=== PATIENT | female | born 1970 | race Caucasian/White ===

== ENCOUNTER 2023-09-19 09:50 | Outpatient (AMB) | payer OTHER, SELFPAY ==
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
[2023-09-19 09:59] VITALS: BP 122/82; PULSE 95; O2SAT 99; BMI 41.5
== END 2023-09-19 11:17 | disposition home or self-care (01) ==
PROVIDERS: PCP Internal Medicine; Visit Provider Nurse Practitioner Family
DX: S01.412S Laceration without foreign body of left cheek and temporomandibular area, sequela (principal); Z98.890 Other specified postprocedural states; F07.81 Postconcussional syndrome; F06.70 Mild neurocognitive disorder due to known physiological condition without behavioral disturbance; G44.309 Post-traumatic headache, unspecified, not intractable; R29.810 Facial weakness; G51.8 Other disorders of facial nerve; H53.2 Diplopia
CPT/HCPCS: 99204

== ENCOUNTER → 2023-09-19 09:50 | Outpatient (BNVA) | payer OTHER, SELFPAY | PROVIDERS: PCP Internal Medicine; Visit Provider Nurse Practitioner Family ==

== ENCOUNTER 2023-12-26 08:50 | Outpatient (AMB) | payer OTHER, SELFPAY ==
--- NOTE | 2023-12-26 09:11 | A.OFFVIS_ITS ---
Intake Vital Signs 12/26/23 09:12 Height 5 ft 7 in Weight 256 lb BMI 40.1 BP 128/80 Blood Pressure Location Rt brachial Position Sitting Pulse 94 Pulse Source Pulse Oximeter Pulse Oximetry (%) 96 Oxygen Delivery Method Room Air Intake Visit Reasons: 3 mnts f/u for:LVM Intake Note: Patient presents for 3 month follow up. my migraines aren't going away Allergies Sulfa (Sulfonamide Antibiotics) Allergy (Unknown, Verified 12/26/23 09:13) Unknown Medication List - Last Reconciled 12/26/23 by MARNIE Spangler amitriptyline 10 - 20 mg (1 - 2 x 10 mg) PO BEDTIME 30 days citalopram (Celexa) 40 mg PO DAILY magnesium oxide 400 mg PO BEDTIME 30 days riboflavin (vitamin B2) 400 mg PO DAILY 30 days sumatriptan succinate 50 - 100 mg orally at onset of headache, may repeat in 2 hrs PRN; max 2 tabs per day or 4 tabs/week (may take with Ibuprofen) 30 days valsartan 160 mg PO DAILY HPI HPI Comments History of Present Illness Details 53-yr-old female presents for f/u visit. Pt denies any significant interval medical changes. She has started doing small group fitness, she has already had some weight loss and gained muscle mass- has been checking w/ a body composition scale. She can have headaches during certain exercises- tries to do modifications. She continues to have facial pain. She continues to have daily headaches, usually later in the day. Triggers still include weather changes, increased time on the computer. She did start: Riboflavin 400mg qam Magnesium 400mg qhs Amitriptyline 10mg qhs- has tolerated it well. Sumatriptan helps but makes her sleepy- so waits until after work to take it and go to sleep. Baseline migraine headache characteristics: Aura: Can see flashing of light or movement from the left eye- unsure if prior to or during the headache Severe, left frontal aching but stabbing when worse a/w Photophobia, phonophobia, nausea, ears ringing, brain fog, tiredness, activity intolerance, not right in space dizziness- with bending over, getting up to quick. Unsure if lower facial s/s worsen when frontal headache is more severe. Facial pain characteristics: Left nasal/maxillary pain. The pain is constant aching and numbness. Then out of the blue, will have a brief shocking pain stems from the left lateral nose across the cheek or up into her left eye. Triggers for the shocking pain include- rainy days, sun, going outside. Takes Ibuprofen- which does not seem to help much. FORMERLY [facility], [facility] Medical History (Updated 09/19/23 @ 13:15 by MARNIE Spangler) Anxiety and depression Retinal vascular occlusion HTN (hypertension) Postconcussive syndrome Surgical History H/O bilateral oophorectomy H/O foot surgery Hx of cholecystectomy H/O section Family History Father CHF (congestive heart failure) Maternal Grandfather Diabetes Sister Asthma Social History Alcohol intake: current Patient Tobacco Use Status: Never used Tobacco Physical Exam Vital Signs: Last Vital Signs Pulse 94 12/26/23 09:12 BP 128/80 12/26/23 09:12 Pulse Ox 96 12/26/23 09:12 Oxygen Delivery Method Room Air 12/26/23 09:12 BMI result Body Mass Index 40.1 Const General: cooperative and no acute distress Orientation/consciousness: patient oriented x3 Resp Effort & Inspection: normal respiratory effort and able to speak in complete sentences Neuro Other: Left lower facial weakness, scarring. General: patient oriented x3 Cognition (Neuro): normal cognition Psych Appearance: grossly normal Mental Status: mental status grossly normal Speech and movement: Normal speech and movement present Affect: normal affect Attitude: cooperative Assessment & Plan Assessment & Plan (1) Postconcussive syndrome: Code(s): F07.81 - Postconcussional syndrome (2) Migraine with aura: Comment: post-traumatic Code(s): G43.109 - Migraine with aura, not intractable, without status migrainosus (3) Neuralgic facial pain: Comment: Left nasal and medial cheek region s/p facial laceration (Nov 2022) Code(s): G51.8 - Other disorders of facial nerve (4) Weakness on left side of face: Code(s): R29.810 - Facial weakness (5) Acquired cognitive dysfunction: Comment: post-concussive Code(s): F09 - Unspecified mental disorder due to known physiological condition Plan For overall post-concussive management: Continue to optimize good self-care, including but not limited to maintaining a healthy diet, adequate fluid intake, adequate sleep, and engaging in regular physical activity. Concur with increasing physical activity- pt plans to start at [employer]. Continue to do facial exercises daily. Track headaches. For cognitive difficulties: Continue taking notes, pacing herself Future considerations- OT cognitive Tx, neurostimulant For acute headache treatment: Ibuprofen prn Hold Sumatriptan 100mg tab- not tolertaed. Trial Rizatripatn 10mg prn, MR x's , march adjunct w/ Ibuprofen Previous acute migraine medication trials: Sumatripatn- not tolerated. Acute migraine medication contraindications: none at this time ? For headache prevention medication: Riboflavin 400mg qam Magnesium 400mg qhs Increase Amitriptyline from 10mg to 20-30mg qhs- may help migraine and left facial pain. Monitor for drowsiness. Previous migraine prevention medication trials: None Migraine prevention medication contraindications: None at this time ? ? Pt to follow-up in 3 months or sooner prn. Medications: New rizatriptan max 2 tabs per day or 4 tabs per week 5 - 10 mg (0.5 - 1 x 10 mg) PO Q2H 21 days PRN 12 tabs 3RF migraine headache Changed From amitriptyline 10 - 20 mg (1 - 2 x 10 mg) PO BEDTIME 30 days 30 tabs 3RF To amitriptyline 20 - 30 mg (2 - 3 x 10 mg) PO BEDTIME 30 days 90 tabs 3RF Coding Level of Care Code Est Pt Level 4 (09753) Diagnoses Postconcussive syndrome F07.81 Migraine with aura G43.109 Neuralgic facial pain G51.8 Weakness on left side of face R29.810 Acquired cognitive dysfunction F09
[2023-12-26 09:12] VITALS: BP 128/80; PULSE 94; O2SAT 96; BMI 40.1
== END 2023-12-26 09:58 | disposition home or self-care (01) ==
PROVIDERS: PCP Internal Medicine; Visit Provider Nurse Practitioner Family
DX: G44.309 Post-traumatic headache, unspecified, not intractable (principal); F07.81 Postconcussional syndrome; G51.8 Other disorders of facial nerve; R29.810 Facial weakness; R41.89 Other symptoms and signs involving cognitive functions and awareness
CPT/HCPCS: 99214

== ENCOUNTER → 2023-12-26 08:50 | Outpatient (BNVA) | payer OTHER, SELFPAY | PROVIDERS: PCP Internal Medicine; Visit Provider Nurse Practitioner Family ==

== ENCOUNTER 2024-03-27 09:26 | Outpatient (AMB) | payer OTHER, SELFPAY ==
--- NOTE | 2024-03-27 09:37 | A.OFFVIS_ITS ---
Vital Signs 03/27/24 09:46 Height 5 ft 0.5 in Weight 251 lb 6 oz BMI 48.3 BP 122/80 Blood Pressure Location Lt brachial Position Sitting Pulse 87 Pulse Source Pulse Oximeter Pulse Oximetry (%) 97 Oxygen Delivery Method Room Air Intake Visit Reasons: 3m follow up-LVM Intake Note: Patient presents for 3 months f/u. Migraines are getting better and medicine is working. Allergies Sulfa (Sulfonamide Antibiotics) Allergy (Unknown, Verified 03/27/24 09:43) Unknown Medication List - Last Reconciled 03/27/24 by MARNIE Spangler amitriptyline 30 mg (3 x 10 mg) PO BEDTIME 30 days citalopram (Celexa) 40 mg PO DAILY magnesium oxide 400 mg PO BEDTIME 30 days riboflavin (vitamin B2) 400 mg PO DAILY 30 days rizatriptan 5 - 10 mg (0.5 - 1 x 10 mg) PO Q2H PRN 21 days valsartan 160 mg PO DAILY HPI Comments Details: 53-yr-old female presents for f/u visit. Pt denies any significant interval medical changes. Pt reports she is scheduled a left medial cheek fat graft in hopes this will reduce left cheek pain- on 04/26/[address] Rea, [facility]. Left lips are still numb. Still doing facial exercises. She continues to have a daily low grade headache. Last severe migraine attack was 2 weeks ago. She is using Amitriptyline 30mg qhs- does have some dry mouth. Rizatriptan has been helpful w/o side effects. She did not receive the Nerivio device. Baseline migraine headache characteristics: Aura: Can see flashing of light or movement from the left eye- unsure if prior to or during the headache Severe, left frontal aching but stabbing when worse a/w Photophobia, phonophobia, nausea, ears ringing, brain fog, tiredness, activity intolerance, not right in space dizziness- with bending over, getting up to quick. Unsure if lower facial s/s worsen when frontal headache is more severe. Facial pain characteristics: Left nasal/maxillary pain. The pain is constant aching and numbness. Then out of the blue, will have a brief shocking pain stems from the left lateral nose across the cheek or up into her left eye. Triggers for the shocking pain include- rainy days, sun, going outside. Takes Ibuprofen- which does not seem to help much. FORMERLY [facility] Medical History (Updated 09/19/23 @ 13:15 by MARNIE Spangler) Anxiety and depression Retinal vascular occlusion HTN (hypertension) Postconcussive syndrome Surgical History H/O bilateral oophorectomy H/O foot surgery Hx of cholecystectomy H/O section Family History Father CHF (congestive heart failure) Maternal Grandfather Diabetes Sister Asthma Social History Alcohol intake: current Patient Tobacco Use Status: Never used Tobacco Physical Exam Vital Signs: Last Vital Signs Pulse 87 03/27/24 09:46 BP 122/80 03/27/24 09:46 Pulse Ox 97 03/27/24 09:46 Oxygen Delivery Method Room Air 03/27/24 09:46 BMI result Body Mass Index 48.3 Const General: cooperative and no acute distress Orientation/consciousness: patient oriented x3 Resp Effort & Inspection: normal respiratory effort and able to speak in complete sentences Neuro Other: Left lower facial weakness/numbness General: patient oriented x3 Cognition (Neuro): normal cognition Psych Appearance: grossly normal Mental Status: mental status grossly normal Speech and movement: Normal speech and movement present Affect: normal affect Attitude: cooperative Assessment & Plan Assessment & Plan (1) Postconcussive syndrome: Code(s): F07.81 - Postconcussional syndrome Category: Medical (2) Migraine with aura: Comment: post-traumatic Code(s): G43.109 - Migraine with aura, not intractable, without status migrainosus Category: Medical (3) Neuralgic facial pain: Comment: Left nasal and medial cheek region s/p facial laceration (Nov 2022) Code(s): G51.8 - Other disorders of facial nerve Category: Medical (4) Acquired cognitive dysfunction: Comment: post-concussive Code(s): F09 - Unspecified mental disorder due to known physiological condition Category: Medical (5) Diplopia: Code(s): H53.2 - Diplopia Category: Medical (6) Weakness on left side of face: Code(s): R29.810 - Facial weakness Category: Medical Plan For overall post-concussive management: Continue to optimize good self-care, including but not limited to maintaining a healthy diet, adequate fluid intake, adequate sleep, and engaging in regular physical activity. Continue increased physical activity. Track headaches. For left facial pain: Amitriptyline 30mhg qhs. Continue to do facial exercises daily. Future considerations- Sphenopalatine ganglion block for left medial cheek neuralgia ? For cognitive difficulties: Continue taking notes, pacing herself Future considerations- OT cognitive Tx, neurostimulant ? For acute headache treatment: Ibuprofen prn Rizatripatn 10mg prn, MR x's 1, may adjunct w/ Ibuprofen Previous acute migraine medication trials: Sumatripatn- not tolerated. Acute migraine medication contraindications: none at this time ? For headache prevention medication: Riboflavin 400mg qam Magnesium 400mg qhs Amitriptyline 30mg qhs- may help migraine and left facial pain. Monitor dry mouth. Previous migraine prevention medication trials: None Migraine prevention medication contraindications: None at this time ? ? Pt to follow-up in 6 months or sooner prn. Medications: Changed From amitriptyline 20 - 30 mg (2 - 3 x 10 mg) PO BEDTIME 30 days 90 tabs 6RF To amitriptyline 30 mg (3 x 10 mg) PO BEDTIME 30 days 90 tabs 6RF Refilled rizatriptan max 2 tabs per day or 4 tabs per week 5 - 10 mg (0.5 - 1 x 10 mg) PO Q2H 21 days PRN 12 tabs 6RF migraine headache Coding Level of Care Code Est Pt Level 4 (47393) Diagnoses Postconcussive syndrome F07.81 Migraine with aura G43.109 Neuralgic facial pain G51.8 Acquired cognitive dysfunction F09 Diplopia H53.2 Weakness on left side of face R29.810
[2024-03-27 09:46] VITALS: BP 122/80; PULSE 87; O2SAT 97; BMI 48.3
== END 2024-03-27 10:35 | disposition home or self-care (01) ==
PROVIDERS: PCP Internal Medicine; Visit Provider Nurse Practitioner Family
DX: G44.309 Post-traumatic headache, unspecified, not intractable (principal); F07.81 Postconcussional syndrome; G51.8 Other disorders of facial nerve; H53.2 Diplopia; R29.810 Facial weakness
CPT/HCPCS: 99214

== ENCOUNTER → 2024-03-27 09:26 | Outpatient (BNVA) | payer OTHER, SELFPAY | PROVIDERS: PCP Internal Medicine; Visit Provider Nurse Practitioner Family ==

== ENCOUNTER 2024-10-15 11:26 | Outpatient (AMB) | payer OTHER, SELFPAY ==
[2024-10-15 11:57] VITALS: BP 142/82; PULSE 106; O2SAT 97; BMI 42.6
--- NOTE | 2024-10-15 11:57 | MHC.OFFVIS ---
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 Pt underwent left medial cheek fat graft on 04/26/[address] Rea, [facility]. Since, she can feel her teeth and left lip better, however the cheek is still tight and the left cheek is tsill numb. Undergoing a left z-plasty on 10/31/[address] Rea. Still doing facial exercises. She continues to have a daily low grade migraine headache. She has been having left facial discomfort- which she feels is triggered by the colder weather. Having less severe migraine attacks now once every 2-3 weeks- feels maybe she is managing/dealing with them better. She is using Amitriptyline 30mg qhs- does have some dry mouth. Rizatriptan has been helpful w/o side effects. Wearing her glasses does. Baseline migraine headache characteristics: Aura: Can see flashing of light or movement from the left eye- unsure if prior to or during the headache Severe, left frontal aching but stabbing when worse a/w Photophobia, phonophobia, nausea, ears ringing, brain fog, tiredness, activity intolerance, not right in space dizziness- with bending over, getting up to quick. Unsure if lower facial s/s worsen when frontal headache is more severe. Facial pain characteristics: Left nasal/maxillary pain. The pain is constant aching and numbness. Then out of the blue, will have a brief shocking pain stems from the left lateral nose across the cheek or up into her left eye. Triggers for the shocking pain include- rainy days, sun, going outside. Takes Ibuprofen- which does not seem to help much. [facility] Medical History Anxiety and depression Retinal vascular occlusion HTN (hypertension) Postconcussive syndrome Surgical History H/O bilateral oophorectomy H/O foot surgery Hx of cholecystectomy H/O section Family History Father CHF (congestive heart failure) Maternal Grandfather Diabetes Sister Asthma Social History Alcohol intake: current Patient Tobacco Use Status: Never used Tobacco Physical Exam Vital Signs: Last Vital Signs Pulse 106 H 10/15/24 11:57 BP 142/82 H 10/15/24 11:57 Pulse Ox 97 10/15/24 11:57 Oxygen Delivery Method Room Air 10/15/24 11:57 BMI result Body Mass Index 42.6 Const General: cooperative and no acute distress Orientation/consciousness: patient oriented x3 Resp Effort & Inspection: normal respiratory effort and able to speak in complete sentences Neuro Other: Left lower facial asymmetry, scar, numbness, w/ decreased weakness. General: patient oriented x3 Cognition (Neuro): normal cognition Psych Appearance: grossly normal Mental Status: mental status grossly normal Speech and movement: Normal speech and movement present Affect: normal affect Attitude: cooperative Assessment & Plan Assessment & Plan (1) Postconcussive syndrome: Code(s): F07.81 - Postconcussional syndrome Category: Medical (2) Migraine with aura: Comment: post-traumatic Code(s): G43.109 - Migraine with aura, not intractable, without status migrainosus Category: Medical (3) Neuralgic facial pain: Comment: Left nasal and medial cheek region s/p facial laceration (Nov 2022) Code(s): G51.8 - Other disorders of facial nerve Category: Medical (4) Acquired cognitive dysfunction: Comment: post-concussive Code(s): F09 - Unspecified mental disorder due to known physiological condition Category: Medical (5) Diplopia: Code(s): H53.2 - Diplopia Category: Medical (6) Weakness on left side of face: Code(s): R29.810 - Facial weakness Category: Medical Plan For overall post-concussive management: Continue to optimize good self-care, including but not limited to maintaining a healthy diet, adequate fluid intake, adequate sleep, and engaging in regular physical activity. Continue increased physical activity. Track headaches. For left facial pain: Amitriptyline 30mhg qhs. Continue to do facial exercises daily. Future considerations- Sphenopalatine ganglion block for left medial cheek neuralgia ? For cognitive difficulties: Continue taking notes, pacing herself Future considerations- OT cognitive Tx, neurostimulant ? For acute migraine headache treatment: Ibuprofen prn Rizatripatn 10mg prn, MR emelia's 1, march adjunct w/ Ibuprofen Previous acute migraine medication trials: Sumatripatn- not tolerated. Acute migraine medication contraindications: none at this time ? For migraine headache prevention medication: Riboflavin 400mg qam Magnesium 400mg qhs Amitriptyline 30mg qhs- may help migraine and left facial pain. Would not increase further d/t pt already has dry mouth. Start Aimovig 140mg/ml autoinjector, 1ml (140mg) subcutaneous injection once a month. Start after undergoing scheduled left facial surgery. Potential adverse effects of Aimovig include but are not limited to injection site reactions, cramps, constipation, increase in blood pressure. Previous migraine prevention medication trials: None Migraine prevention medication contraindications: None at this time ? ? Pt to follow-up in 6 months or sooner prn. Medications: New erenumab-aooe (Aimovig Autoinjector) 140 mg subcut ONCE 1 mL 6RF 30 days Refilled magnesium oxide may hold for loose stools 400 mg PO BEDTIME 30 tabs 6RF 30 days riboflavin (vitamin B2) 400 mg PO DAILY 30 tabs 6RF 30 days amitriptyline 30 mg (3 x 10 mg) PO BEDTIME 90 tabs 6RF 30 days Coding Level of Care Code Est Pt Level 4 (95346) Diagnoses Postconcussive syndrome F07.81 Migraine with aura G43.109 Neuralgic facial pain G51.8 Acquired cognitive dysfunction F09 Diplopia H53.2 Weakness on left side of face R29.810
== END 2024-10-15 12:52 | disposition home or self-care (01) ==
PROVIDERS: PCP Internal Medicine; Visit Provider Nurse Practitioner Family
DX: G44.309 Post-traumatic headache, unspecified, not intractable (principal); F07.81 Postconcussional syndrome; G51.8 Other disorders of facial nerve; F09 Unspecified mental disorder due to known physiological condition; H53.2 Diplopia; R29.810 Facial weakness
CPT/HCPCS: 99214

== ENCOUNTER → 2024-10-15 11:26 | Outpatient (BNVA) | payer OTHER, SELFPAY | PROVIDERS: PCP Internal Medicine; Visit Provider Nurse Practitioner Family ==

== ENCOUNTER 2025-04-15 07:57 | Outpatient (AMB) | payer OTHER, SELFPAY ==
[2025-04-15 08:08] VITALS: BP 144/90; PULSE 96; O2SAT 97; BMI 42.6
--- NOTE | 2025-04-15 08:08 | A.OFFVIS_ITS ---
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 Accompanied by: Self / Same As Patient Allergies Sulfa (Sulfonamide Antibiotics) Allergy (Unknown, Verified 04/15/25 08:12) Unknown Medication List - Last Reconciled 04/15/25 by MARNIE Spangler amitriptyline 30 mg (3 x 10 mg) PO BEDTIME 30 days citalopram (Celexa) 40 mg PO DAILY famotidine 20 mg PO BID fremanezumab-vfrm (Ajovy) 225 mg (1.5 mL) subcut ONCE 30 days magnesium oxide 400 mg PO BEDTIME 30 days metformin ER 500 mg PO DAILY riboflavin (vitamin B2) 400 mg PO DAILY 30 days rizatriptan 5 - 10 mg (0.5 - 1 x 10 mg) PO Q2H PRN 21 days valsartan 160 mg PO DAILY HPI Comments Details: 54-yr-old female presents for f/u visit of migraine and left facial pain. Pt underwent left medial cheek fat graft on 04/26/24 and the follow-up left z- plasty procedure on 10/31/[address] Rea at [facility]. She reports post-surgical throat irritation, which she attributes to being intubated. Since she has had voice hoarseness and feeling like something is stuck in her throat. She has since had ENT eval- nasal scope showed upper esophageal irritation and vocal cord dysfunction. She was started on prilosec and has been referred to [facility]. She notes during and for about an hour after the nasal scope- the left sided pain significantly subsided. She states the z-plasty has helped regain her left nasolabial fold, but unfortunately did not reduce her facial pain symptoms. Still doing facial exercises. She states she is getting better at differentiating between her left facial pain and migraine symptoms, migraine seems to be more right sided. Facial pain characteristics: Left nasal/maxillary pain. The pain is constant aching and numbness. Then out of the blue, will have a brief shocking pain stems from the left lateral nose across the cheek or up into her left eye. Triggers for the shocking pain inc lude- rainy days, sun, going outside. Takes Ibuprofen- which does not seem to help much. She is having about 1 migraine day per month since starting Ajovy, previously was having 2-3 attacks per week. She was able to decrease the Amitriptyline to 20mg qhs, hopes to reduce it further. Rizatriptan has been helpful w/o side effects. Baseline migraine headache characteristics: Aura: Can see flashing of light or movement from the left eye- unsure if prior to or during the headache, diplopia Severe, right or left frontal aching but stabbing when worse a/w Photophobia, phonophobia, nausea, ears ringing, brain fog, tiredness, activity intolerance, not right in space dizziness- with bending over, getting up to quick. Unsure if lower facial s/s worsen when frontal headache is more severe. [facility] Medical History Anxiety and depression Retinal vascular occlusion HTN (hypertension) Postconcussive syndrome Surgical History H/O bilateral oophorectomy H/O foot surgery Hx of cholecystectomy H/O section Family History Father CHF (congestive heart failure) Maternal Grandfather Diabetes Sister Asthma Social History Alcohol intake: current Patient Tobacco Use Status: Never used Tobacco Physical Exam Vital Signs: Last Vital Signs Pulse 96 04/15/25 08:08 BP 144/90 H 04/15/25 08:08 Pulse Ox 97 04/15/25 08:08 Oxygen Delivery Method Room Air 04/15/25 08:08 BMI result Body Mass Index 42.6 Const General: cooperative and no acute distress Orientation/consciousness: patient oriented x3 Resp Effort & Inspection: normal respiratory effort and able to speak in complete sentences Neuro Other: Left lower facial asymmetry, scar, numbness, w/ decreased weakness. General: patient oriented x3 Cognition (Neuro): normal cognition Psych Appearance: grossly normal Mental Status: mental status grossly normal Speech and movement: Normal speech and movement present Affect: normal affect Attitude: cooperative Assessment & Plan Assessment & Plan (1) Postconcussive syndrome: Code(s): F07.81 - Postconcussional syndrome Category: Medical (2) Migraine with aura: Comment: post-traumatic Code(s): G43.109 - Migraine with aura, not intractable, without status migrainosus Category: Medical Qualifiers: Status migrainosus presence: without status migrainosus Intractability: not intractable Qualified Code(s): G43.109 - Migraine with aura, not intractable, without status migrainosus (3) Neuralgic facial pain: Comment: Left nasal and medial cheek region s/p facial laceration (Nov 2022) Code(s): G51.8 - Other disorders of facial nerve Category: Medical (4) Acquired cognitive dysfunction: Comment: post-concussive Code(s): F09 - Unspecified mental disorder due to known physiological condition Category: Medical (5) Diplopia: Code(s): H53.2 - Diplopia Category: Medical (6) Weakness on left side of face: Code(s): R29.810 - Facial weakness Category: Medical Plan For overall post-concussive management: Continue to optimize good self-care, including but not limited to maintaining a healthy diet, adequate fluid intake, adequate sleep, and engaging in regular physical activity. Continue increased physical activity. Track headaches. For cognitive difficulties: Continue taking notes, pacing herself Future considerations- OT cognitive Tx, neurostimulant For acute migraine headache treatment: Ibuprofen prn Rizatripatn 10mg prn, MR x's , march adjunct w/ Ibuprofen Previous acute migraine medication trials: Sumatripatn- not tolerated. Acute migraine medication contraindications: none at this time For migraine headache prevention medication: Continue Riboflavin 400mg qam Continue Magnesium 400mg qhs May continue to try to wean off Amitriptyline- decrease from 20mg to 10mg qhs. Continue Ajovy 225mg sc monthly. Continue Valsartan for HTN. Note- Aimovig 140mg order stopped as denied by pt's insurance. Previous migraine prevention medication trials: Amitriptyline up to 30mg qhs- not fully effective. Migraine prevention medication contraindications: Topiramate- d/t risk for worsening cognitive s/s. For left facial pain: Shared info on the [employer]. May continue to try to wean off Amitriptyline- decrease from 20mg to 10mg qhs. Continue to do facial exercises daily. Start home Sphenopalatine Ganglion Block with Intranasal Lidocaine??2% viscous solution, as pt had positive effect from left nasal anesthetic during her recent nasal scope. Home Instructions for Intranasal Lidocaine/Sphenopalatine Ganglion Block * Do not take this by mouth. * This is for intranasal administration only * Draw up 1 ml of 2% viscous lidocaine into a thin 1ml dosing syringe (the syringe should be thin enough to be inserted deep into the nose).Self administer 1 mL of 2% viscous lidocaine solution into nasal passage on the same side as the head pain.?? * Lidocaine??may be administered into bilateral nasal passages if the headache/??facial pain is on both sides of the head. * Dose may be repeated x1 in 15 minutes. Max of 4 mL per nasal passage per day. Technique: * Lie down on your side curled up like a baby sleeping on its side, with your shoulder on the back of a firm pillow, and your head tilted back and rotated so you are looking up ~30 degrees. * Put the syringe into the lower nostril on the same side as your headache/facial pain, as far as it will comfortably go, with the tip pointing towards the outer (lateral) wall of the nostril. * Inject the contents of the syringe, and then sniff the medicine so that you feel it goes to the back of the nostril, but not into the throat. * If you feel burning or numbness into the eye, or if the eye tears, you know you have gotten the medicine where it needs to be. * Stay lying down with your head turned for 2 ? 3 minutes. * If your headache/facial pain is on both sides, roll over and repeat the procedure on the other side. Stay lying down for 2-3 minutes on this side. After sitting up: * When you sit up, whatever medicine has not been absorbed into your nose will roll back into your throat. * It will taste bitter and may make your throat numb. * Don?t eat or drink until the numbness has gone away ? otherwise you might swallow food or liquid into your windpipe. For further information, please review the following: Please note that some of the information below comes from [employer], which is an organization specific cluster headache. However, their explanation and video is applicable to migraine, trigeminal neuralgia and other facial pain??disorders. * cluster busters at home instruction link * https://[employer].org/resource/cfjk-kxgyltdebekr-omo-intranasal-lidoca mtv-rwgymxqqsjdiix-bjnemzmo-block/ * instructional video * https://www.youtube.com/watch?v=s3H6v0f8L3G * alternate home instruction * chrome-extension://efaidnbmnnnibpcajpcglclefindmkaj/https://www.[facility].org/assets/[facility]/headache-center/documents/nasal-lidocaine.pdf If your pharmacy can not provide you the syringe, you can buy this bdnd-xev-oyixomc at a medical supply store or online. ?Specifically, you would need a sterile, individually wrapped, 1 mL syringe without needle or luer lock. Pt to follow-up in 6 months or sooner prn. Medications: New lidocaine HCl 2% (Lidocaine Viscous) 1ml applied to left and right intranasal passage, MR x's 1 in 15 minutes. Max 4ml per nasal passage per day. 1 mL mucous membrane QID 30 days PRN 100 mL 1RF pain oral dosing syringes 1 mL syringes without needle. To be used as directed with viscous lidocaine intranasal order. 100 ea 6RF Changed From riboflavin (vitamin B2) 400 mg PO DAILY 30 days 30 tabs 6RF To riboflavin (vitamin B2) 400 mg PO DAILY 90 days 90 tabs 3RF From amitriptyline 30 mg (3 x 10 mg) PO BEDTIME 30 days 90 tabs 6RF To amitriptyline 10 mg PO BEDTIME 30 days 30 tabs 6RF From magnesium oxide may hold for loose stools 400 mg PO BEDTIME 30 days 30 tabs 6RF To magnesium oxide may hold for loose stools 400 mg PO BEDTIME 90 days 90 tabs 3RF Refilled rizatriptan max 2 tabs per day or 4 tabs per week 5 - 10 mg (0.5 - 1 x 10 mg) PO Q2H 21 days PRN 12 tabs 6RF migraine headache Coding Level of Care Code Est Pt Level 4 (52426) Diagnoses Postconcussive syndrome F07.81 Migraine with aura and without status migrainosus, not intractable G43.109 Status migrainosus presence: without status migrainosus Intractability: not intractable Neuralgic facial pain G51.8 Acquired cognitive dysfunction F09 Diplopia H53.2 Weakness on left side of face R29.810
== END 2025-04-15 08:50 | disposition home or self-care (01) ==
LOC: HO.HSMS 07:58
PROVIDERS: PCP Internal Medicine; Visit Provider Nurse Practitioner Family
DX: G51.8 Other disorders of facial nerve (principal); F07.81 Postconcussional syndrome; G44.309 Post-traumatic headache, unspecified, not intractable; F09 Unspecified mental disorder due to known physiological condition; H53.2 Diplopia; R29.810 Facial weakness
CPT/HCPCS: 99214

== ENCOUNTER 2025-10-23 10:48 | Outpatient (AMB) | payer OTHER, SELFPAY ==
--- NOTE | 2025-10-23 11:05 | A.OFFVIS_ITS ---
Vital Signs 10/23/25 11:07 Height 5 ft 7 in Weight 261 lb BMI 40.9 BP 120/78 Blood Pressure Location Rt brachial Position Sitting Pulse 99 Pulse Source Pulse Oximeter Pulse Oximetry (%) 95 Oxygen Delivery Method Room Air Intake Visit Reasons: 6 mo follow up Intake Note: Patient presents follow up for migraines/facial pain [employer] Required: No Accompanied by: Self / Same As Patient Allergies Sulfa (Sulfonamide Antibiotics) Allergy (Unknown, Verified 10/23/25 11:12) Unknown Medication List - Last Reconciled 10/23/25 by MARNIE Spangler amitriptyline 20 mg PO BEDTIME citalopram (Celexa) 40 mg PO DAILY fremanezumab-vfrm (Ajovy) 225 mg (1.5 mL) subcut ONCE 30 days lidocaine HCl 2% (Lidocaine Viscous) 1 mL mucous membrane QID PRN 30 days magnesium oxide 400 mg PO BEDTIME 90 days metformin ER 500 mg PO DAILY oral dosing syringes 1 mL syringes without needle. To be used as directed with viscous lidocaine intranasal order. riboflavin (vitamin B2) 400 mg PO DAILY 90 days rizatriptan 5 - 10 mg (0.5 - 1 x 10 mg) PO Q2H PRN 21 days semaglutide (Ozempic) 0.25 mg subcut QWEEK valsartan 160 mg PO DAILY HPI Comments Details: 54-yr-old female presents for f/u visit of migraine and left facial pain. She started on ozempic last week for diabetes control. She is scheduled for 1 more left facial surgery. She sttates that Ajovy was very effective, however her pharmacy informed her that they could not fill the order. Since not having Ajovy, she is again having a daily headache. Needing to take Rizatriptan twice a month- for the right sided headcahe that comes from the occipital region into the eye- as an ice pick sensation. Has more left facial pain on days when it is going to snow. She tried the lidocaine gel- but found it messy, and that it numbed too much of her face. 04/15/2025, HPI: Pt underwent left medial cheek fat graft on 04/26/24 and the follow-up left z- plasty procedure on 10/31/[address] Rea at [facility]. She reports post-surgical throat irritation, which she attributes to being intubated. Since she has had voice hoarseness and feeling like something is stuck in her throat. She has since had ENT eval- nasal scope showed upper esophageal irritation and vocal cord dysfunction. She was started on prilosec and has been referred to [facility]. She notes during and for about an hour after the nasal scope- the left sided pain significantly subsided. She states the z-plasty has helped regain her left nasolabial fold, but unfortunately did not reduce her facial pain symptoms. Still doing facial exercises. She states she is getting better at differentiating between her left facial pain and migraine symptoms, migraine seems to be more right sided. Facial pain characteristics: Left nasal/maxillary pain. The pain is constant aching and numbness. Then out of the blue, will have a brief shocking pain stems from the left lateral nose across the cheek or up into her left eye. Triggers for the shocking pain include- rainy days, sun, going outside. Takes Ibuprofen- which does not seem to help much. She is having about 1 migraine day per month since starting Ajovy, previously was having 2-3 attacks per week. She was able to decrease the Amitriptyline to 20mg qhs, hopes to reduce it further. Rizatriptan has been helpful w/o side effects. Baseline migraine headache characteristics: Aura: Can see flashing of light or movement from the left eye- unsure if prior to or during the headache, diplopia Severe, right or left frontal aching but stabbing when worse a/w Photophobia, phonophobia, nausea, ears ringing, brain fog, tiredness, activity intolerance, not right in space dizziness- with bending over, getting up to quick. Unsure if lower facial s/s worsen when frontal headache is more severe. [facility] Medical History Anxiety and depression Retinal vascular occlusion HTN (hypertension) Postconcussive syndrome Surgical History H/O bilateral oophorectomy H/O foot surgery Hx of cholecystectomy H/O section Family History Father CHF (congestive heart failure) Maternal Grandfather Diabetes Sister Asthma Social History Alcohol intake: current Patient Tobacco Use Status: Never used Tobacco Physical Exam Vital Signs: Last Vital Signs Pulse 99 10/23/25 11:07 BP 120/78 10/23/25 11:07 Pulse Ox 95 10/23/25 11:07 Oxygen Delivery Method Room Air 10/23/25 11:07 BMI result Body Mass Index 40.9 Const General: cooperative and no acute distress Orientation/consciousness: patient oriented x3 Resp Effort & Inspection: normal respiratory effort and able to speak in complete sentences Neuro Other: Left lower facial asymmetry, scar, numbness, w/ decreased weakness. General: patient oriented x3 Cognition (Neuro): normal cognition Psych Appearance: grossly normal Mental Status: mental status grossly normal Speech and movement: Normal speech and movement present Affect: normal affect Attitude: cooperative Assessment & Plan Assessment & Plan (1) Postconcussive syndrome: Code(s): F07.81 - Postconcussional syndrome Category: Medical (2) Migraine with aura: Comment: post-traumatic Code(s): G43.109 - Migraine with aura, not intractable, without status migrainosus Category: Medical Qualifiers: Intractability: not intractable Status migrainosus presence: without status migrainosus Qualified Code(s): G43.109 - Migraine with aura, not intractable, without status migrainosus (3) Neuralgic facial pain: Comment: Left nasal and medial cheek region s/p facial laceration (Nov 2022) Code(s): G51.8 - Other disorders of facial nerve Category: Medical (4) Acquired cognitive dysfunction: Comment: post-concussive Code(s): F09 - Unspecified mental disorder due to known physiological condition Category: Medical (5) Diplopia: Code(s): H53.2 - Diplopia Category: Medical (6) Weakness on left side of face: Code(s): R29.810 - Facial weakness Category: Medical Plan For overall post-concussive management: Continue to optimize good self-care, including but not limited to maintaining a healthy diet, adequate fluid intake, adequate sleep, and engaging in regular physical activity. Continue increased physical activity. Track headaches. For cognitive difficulties: Continue taking notes, pacing herself Future considerations- OT cognitive Tx, neurostimulant For acute migraine headache treatment: Ibuprofen prn Rizatripatn 10mg prn, MR emelia's 1, march adjunct w/ Ibuprofen Previous acute migraine medication trials: Sumatripatn- not tolerated. Acute migraine medication contraindications: none at this time For migraine headache prevention medication: Continue Riboflavin 400mg qam Continue Magnesium 400mg qhs Continue Amitriptyline 20mg qhs. Resume Ajovy 225mg sc monthly. * Per review of chart- the Ajovy does not require an insurance PA * Therefore, senta 90 day supply to [facility]- and advised her to notify us if she has any diffiuclty receiving this again. Continue Valsartan for HTN. Note- Aimovig 140mg order stopped as denied by pt's insurance. Previous migraine prevention medication trials: Amitriptyline up to 30mg qhs- not fully effective. Migraine prevention medication contraindications: Topiramate- d/t risk for worsening cognitive s/s. For left facial pain: Previously shared info on the [employer]. Continue Amitriptyline- decrease from 20mg to 10mg qhs. Continue to do facial exercises daily. Continue home Sphenopalatine Ganglion Block with Intranasal Lidocaine??2% viscous solution, as pt had positive effect from left nasal anesthetic during her recent nasal scope. Home Instructions for Intranasal Lidocaine/Sphenopalatine Ganglion Block * Do not take this by mouth. * This is for intranasal administration only * Draw up 1 ml of 2% viscous lidocaine into a thin 1ml dosing syringe (the syringe should be thin enough to be inserted deep into the nose).Self administer 1 mL of 2% viscous lidocaine solution into nasal passage on the same side as the head pain.?? * May use less to see if this is better tolerated * Lidocaine??may be administered into bilateral nasal passages if the headache /??facial pain is on both sides of the head. * Dose may be repeated x1 in 15 minutes. Max of 4 mL per nasal passage per day. Technique: * Lie down on your side curled up like a baby sleeping on its side, with your shoulder on the back of a firm pillow, and your head tilted back and rotated so you are looking up ~30 degrees. * Put the syringe into the lower nostril on the same side as your headache/facial pain, as far as it will comfortably go, with the tip pointing towards the outer (lateral) wall of the nostril. * Inject the contents of the syringe, and then sniff the medicine so that you feel it goes to the back of the nostril, but not into the throat. * If you feel burning or numbness into the eye, or if the eye tears, you know you have gotten the medicine where it needs to be. * Stay lying down with your head turned for 2 ? 3 minutes. * If your headache/facial pain is on both sides, roll over and repeat the procedure on the other side. Stay lying down for 2-3 minutes on this side. After sitting up: * When you sit up, whatever medicine has not been absorbed into your nose will roll back into your throat. * It will taste bitter and may make your throat numb. * Don?t eat or drink until the numbness has gone away ? otherwise you might swallow food or liquid into your windpipe. Pt to follow-up in 6 months or sooner prn. Medications: Changed From fremanezumab-vfrm (Ajovy) administer 225mg sc q month 225 mg (1.5 mL) subcut ONCE 30 days 1.5 mL 11RF G43.109 - Migraine with aura, not intractable, without status migrainosus To fremanezumab-vfrm (Ajovy) administer 225mg sc q month 225 mg (1.5 mL) subcut QMONTH 4.5 mL 4RF 90 days G43.109 - Migraine with aura, not intractable, without status migrainosus From amitriptyline 20 mg PO BEDTIME To amitriptyline 20 mg (2 x 10 mg) PO BEDTIME 180 tabs 1RF 90 days Refilled rizatriptan max 2 tabs per day or 4 tabs per week 5 - 10 mg (0.5 - 1 x 10 mg) PO Q2H PRN 12 tabs 11RF migraine headache 21 days Coding Level of Care Code Est Pt Level 4 (81705) Diagnoses Postconcussive syndrome F07.81 Migraine with aura and without status migrainosus, not intractable G43.109 Intractability: not intractable Status migrainosus presence: without status migrainosus Neuralgic facial pain G51.8 Acquired cognitive dysfunction F09 Diplopia H53.2 Weakness on left side of face R29.810
[2025-10-23 11:07] VITALS: BP 120/78; PULSE 99; O2SAT 95; BMI 40.9
== END 2025-10-23 12:25 | disposition home or self-care (01) ==
PROVIDERS: PCP Internal Medicine; Visit Provider Nurse Practitioner Family
DX: G51.8 Other disorders of facial nerve (principal); F07.81 Postconcussional syndrome; G43.109 Migraine with aura, not intractable, without status migrainosus; R41.89 Other symptoms and signs involving cognitive functions and awareness; H53.2 Diplopia; R29.810 Facial weakness
CPT/HCPCS: 99214